=== PATIENT | female | born 1960 | race Caucasian/White ===

== ENCOUNTER 2017-01-18 17:16 | Emergency (ER) | payer OTHER ==
[~2017-01-18] VITALS: Ht 154.9 cm; Wt 68.0 kg
[2017-01-18] MEDS ORDERED: ALPRAZolam 0.25 MG (XANAX) TAB ONE (18:32)
[2017-01-18 18:35] LABS: BASOPHILS # (AUTO) 0.2 10^3/uL (0.0-0.1); BASOPHILS % (AUTO) 1 % (0-10); EOSINOPHILS # (AUTO) 0.1 10^3/uL (0.0-0.3); EOSINOPHILS % (AUTO) 1 % (0-10); LYMPHOCYTES # (AUTO) 2.4 X 10^3 (1.0-4.0); LYMPHOCYTES % (AUTO) 22 % (12-44); MEAN CORPUSCULAR HEMOGLOBIN 28 PG (25-34); MEAN CORPUSCULAR HGB CONC 34 G/DL (32-36); MEAN CORPUSCULAR VOLUME 83 FL (80-99); MEAN PLATELET VOLUME 11.2 FL (7.4-10.4); MONOCYTES # (AUTO) 0.7 X 10^3 (0.0-1.0); MONOCYTES % (AUTO) 6 % (0-12); NEUTROPHILS # (AUTO) 7.5 X 10^3 (1.8-7.8); NEUTROPHILS % (AUTO) 69 % (42-75); PLATELET COUNT 270 10^3/uL (130-400); RED BLOOD COUNT 5.37 10^6/uL (4.35-5.85); RED CELL DISTRIBUTION WIDTH 12.8 % (10.0-14.5); WHITE BLOOD COUNT 10.8 10^3/uL (4.3-11.0)
[2017-01-18 18:36] LABS: BILIRUBIN,URINE NEGATIVE (NEGATIVE); KETONES,URINE NEGATIVE (NEGATIVE); LEUKOCYTE ESTERASE ,URINE 1+ (NEGATIVE); NITRITE,URINE NEGATIVE (NEGATIVE); PH,URINE 7 (5-9); PROTEIN,URINE 1+ (NEGATIVE); UROBILINOGEN,URINE NORMAL (NORMAL)
[2017-01-18 18:42] LABS: WBC,URINE 0-2 /HPF
--- NOTE | 2017-01-18 18:49 | ED General ---
General Chief Complaint: General Problems/Pain Stated Complaint: BLOOD PRESSURE HIGH Nursing Triage Note: PT REPORTS SHE HAD SOME NAUSEA AND DIZZINESS AROUND NOON TODAY. SHE REPORTS GOING TO URGENT CARE IN [place] AND WAS HYPERTENSIVE. SHE STATES SHE WAS THEN SENT TO [place] ER, BUT SHE DIDN'T WANT TO WAIT THERE SO SHE CAME HERE. PT IS ASYMPTOMATIC AT THIS TIME. Nursing Sepsis Screen: No Definite Risk History of Present Illness Time Seen by Provider: 17:35 Initial Comments Patient reports increased anxiety recently. Her son has enlisted in the and will be leaving in the next few weeks. She reports being nauseated earlier today, it has improved. She had a headache, it improved after Tylenol and ibuprofen. Timing/Duration: 4-6 Hours Severity: Mild Modifying Factors: improves with Rest Associated Systoms: Denies Symptoms Allergies and Home Medications Allergies Coded Allergies: cephalexin (Verified Allergy, Unknown, 01/18/17) levofloxacin (Verified Allergy, Unknown, 01/18/17) prochlorperazine (Verified Allergy, Unknown, 01/18/17) promethazine (Verified Allergy, Unknown, 01/18/17) Home Medications Alprazolam 0.25 Mg Tablet, 0.25 MG PO Q8H PRN for ANXIETY, #9 Ref 0 Prescribed by: JUAREZ ROGERS on 01/18/171936 Constitutional: no symptoms reported, see HPI Gastrointestinal: see HPI, nausea Psychiatric/Neurological: See HPI, Anxiety All Other Systems Reviewed Negative Unless Noted: Yes Past Kvtbdlz-Sahrfe-Voqysr Hx Patient Social History Alcohol Use: Denies Use Recreational Drug Use: No Smoking Status: Never a Smoker 2nd Hand Smoke Exposure: No Recent Foreign Travel: No Contact w/Someone Who Travel: No Recent Infectious Disease Expo: No Recent Hopitalizations: No Seasonal Allergies Seasonal Allergies: No Surgeries Surgeries: Gallbladder, Hysterectomy, Tubal Ligation Reviewed Nursing Assessment Reviewed/Agree w Nursing PMH: Yes Physical Exam Vital Signs Vital Sign - Last 12Hours 01/18/17 17:35 Temp 97.9 Pulse 84 Resp 18 B/P (MAP) 143/87 Pulse Ox 98 O2 Delivery Room Air Capillary Refill : Less Than 3 Seconds General Appearance: No Apparent Distress, WD/WN HEENT: PERRL/EOMI, TMs Normal, Normal ENT Inspection, Pharynx Normal Neck: Full Range of Motion, Normal Inspection, Non Tender, Supple Respiratory: Chest Non Tender, Lungs Clear, Normal Breath Sounds Cardiovascular: Regular Rate, Rhythm, No Edema, No Murmur, Normal Peripheral Pulses Gastrointestinal: Normal Bowel Sounds, No Organomegaly, No Pulsatile Mass, Non Tender, Soft Neurologic/Psychiatric: Alert, Oriented x3, No Motor/Sensory Deficits, Normal Mood/Affect, Other (patient becomes tearful easily when discussing her son leaving for the .) Skin: Normal Color, Warm/Dry Lymphatic: No Adenopathy Progress/Results/Core Measures Results/Orders Lab Results Laboratory Tests Test 01/18/17 18:25 01/18/17 18:27 Range/Units Urine Color HOWARD H Urine Clarity CLEAR Urine pH 7 5-9 Urine Specific [place] 1.010 L 1.016-1.022 Urine Protein 1+ H NEGATIVE Urine Glucose (UA) NEGATIVE NEGATIVE Urine Ketones NEGATIVE NEGATIVE Urine Nitrite NEGATIVE NEGATIVE Urine Bilirubin NEGATIVE NEGATIVE Urine Urobilinogen NORMAL NORMAL MG/DL Urine Leukocyte Esterase 1+ H NEGATIVE Urine RBC (Auto) 2+ H NEGATIVE Urine RBC 2-5 H /HPF Urine WBC 0-2 /HPF Urine Squamous Epithelial Cells 5-10 /HPF Urine Crystals NONE /LPF Urine Bacteria TRACE /HPF Urine Casts NONE /LPF Urine Mucus NEGATIVE /LPF Urine Culture Indicated NO White Blood Count 10.8 4.3-11.0 10^3/uL Red Blood Count 5.37 4.35-5.85 10^6/uL Hemoglobin 15.1 11.5-16.0 G/DL Hematocrit 45 35-52 % Mean Corpuscular Volume 83 80-99 FL Mean Corpuscular Hemoglobin 28 25-34 PG Mean Corpuscular Hemoglobin Concent 34 32-36 G/DL Red Cell Distribution Width 12.8 10.0-14.5 % Platelet Count 270 130-400 10^3/uL Mean Platelet Volume 11.2 H 7.4-10.4 FL Neutrophils (%) (Auto) 69 42-75 % Lymphocytes (%) (Auto) 22 12-44 % Monocytes (%) (Auto) 6 0-12 % Eosinophils (%) (Auto) 1 0-10 % Basophils (%) (Auto) 1 0-10 % Neutrophils # (Auto) 7.5 1.8-7.8 X 10^3 Lymphocytes # (Auto) 2.4 1.0-4.0 X 10^3 Monocytes # (Auto) 0.7 0.0-1.0 X 10^3 Eosinophils # (Auto) 0.1 0.0-0.3 10^3/uL Basophils # (Auto) 0.2 H 0.0-0.1 10^3/uL Sodium Level 145 135-145 MMOL/L Potassium Level 3.3 L 3.6-5.0 MMOL/L Chloride Level 109 H 98-107 MMOL/L Carbon Dioxide Level 23 21-32 MMOL/L Anion Gap 13 5-14 MMOL/L Blood Urea Nitrogen 15 7-18 MG/DL Creatinine 0.76 0.60-1.30 MG/DL Estimat Glomerular Filtration Rate > 60 BUN/Creatinine Ratio 20 Glucose Level 126 H 70-105 MG/DL Calcium Level 9.6 8.5-10.1 MG/DL Total Bilirubin 0.4 0.1-1.0 MG/DL Aspartate Amino Transf (AST/SGOT) 17 5-34 U/L Alanine Aminotransferase (ALT/SGPT) 25 0-55 U/L Alkaline Phosphatase 90 40-136 U/L Total Protein 8.1 6.4-8.2 GM/DL Albumin 4.6 H 3.2-4.5 GM/DL Thyroid Stimulating Hormone (TSH) 1.52 0.35-4.94 UIU/ML My Orders Orders - JUAREZ ROGERS Cbc With Automated Diff (01/18/17 17:48) Comprehensive Metabolic Panel (01/18/17 17:48) Thyroid Stimulating Hormone (01/18/17 17:48) Ua Culture If Indicated (01/18/17 17:48) Alprazolam Tablet (Xanax Tablet) (01/18/17 18:32) Rx-Ondansetron Po (Rx-Zofran Po) (01/18/17 19:31) Vital Signs/I&O Vital Sign - Last 12Hours 01/18/17 17:35 Temp 97.9 Pulse 84 Resp 18 B/P (MAP) 143/87 Pulse Ox 98 O2 Delivery Room Air Blood Pressure Mean: 105 Progress Note : Time: 17:35 Progress Note Initial evaluation completed, recommended obtaining a CBC, TSH, UA and CMP. Patient declined needing any medication for anxiety or nausea at the present time. 1830 discussed results of labs with patient, no specific abnormalities noted. We talked at length about her son enlisting in the and sleeping for basic training in mid February. She is experiencing grief and anxiety related to this. Her is not concerned with him enlisting and not understanding about her concerns. She was prescribed xanax one other time in the past for anxiety, maybe 3-4 years ago. She didn't take it for long and flushed majority of Rx. She didn't like the way it made her feel. Discussed using 1/2 tablet to see if that works better. She is willing to try this and see counseling. She will talk to Dr. Gómez about this. Departure Impression Impression: Primary Impression: Nausea Additional Impression: Anxiety Disposition: HOME, SELF-CARE Condition: Improved Departure-Patient Inst. Decision time for Depature: 19:00 Referrals: LUISITO CORTES DO (PCP) Primary Care Physician Patient Instructions: Anxiety, Adult (DC), Nausea and Vomiting, Adult (DC) Add. Discharge Instructions: Increase water intake. Consider counseling for anxiety. Use Xanax 1/2-1 tablet as needed for anxiety. Tylenol PM at night. Return to emergency department for chest pain, hypertension, nausea and vomiting , or new complaints. All discharge instructions reviewed with patient and/or family. Voiced understanding. Scripts Alprazolam (Xanax) 0.25 Mg Tablet 0.25 MG PO Q8H Y for ANXIETY, #9 TAB 0 Refills Prov: JUAREZ ROGERS 01/18/17 Copy Copies To 1: INNA GÓMEZ MD, AMY ARNP Jan 18, 2017 18:49
[2017-01-18 18:58] LABS: ALANINE AMINOTRANSFERASE 25 U/L (0-55); ALBUMIN 4.6 GM/DL (3.2-4.5); ANION GAP 13 MMOL/L (5-14); ASPARTATE AMINO TRANSFERASE 17 U/L (5-34); BILIRUBIN,TOTAL 0.4 MG/DL (0.1-1.0); BLOOD UREA NITROGEN 15 MG/DL (7-18); BUN/CREATININE RATIO 20; CALCIUM 9.6 MG/DL (8.5-10.1); CARBON DIOXIDE 23 MMOL/L (21-32); CHLORIDE 109 MMOL/L (98-107); CREATININE SERUM 0.76 MG/DL (0.60-1.30); GFR ESTIMATED > 60; GLUCOSE 126 MG/DL (70-105); POTASSIUM 3.3 MMOL/L (3.6-5.0); SODIUM 145 MMOL/L (135-145); TOTAL PROTEIN 8.1 GM/DL (6.4-8.2)
[2017-01-18 19:17] LABS: THYROID STIMULATING HORMONE 1.52 UIU/ML (0.35-4.94)
[2017-01-18] MEDS ORDERED: RX-ONDANSETRON 4 MG ODT (ZOFRAN) PPK #4 PO STA (19:31)
[2017-01-18] MEDS ORDERED: ALPR0.25 PO (19:37)
[2017-01-18 19:52] VITALS: BP 164/94
== END 2017-01-18 19:49 | disposition home or self-care (01) ==
LOC: EDUNIT# 17:16 → ER 17:19
DX: F41.9 Anxiety disorder, unspecified (principal); R11.0 Nausea; Z90.49 Acquired absence of other specified parts of digestive tract; Z90.710 Acquired absence of both cervix and uterus; Z98.51 Tubal ligation status
CPT/HCPCS: 36415; 80053; 81000; 84443; 85025; 99283

== ENCOUNTER 2019-06-05 20:04 | Emergency (ER) | payer BC, OTHER ==
[~2019-06-05] VITALS: Ht 156.4 cm; Wt 79.5 kg
[~2019-06-05 20:04] MED LIST: ALPR0.25 PO
--- NOTE | 2019-06-05 20:11 | NUR ---
PT. REPORTED SHE IS UP TO DATE ON TETNAUS.
--- NOTE | 2019-06-05 20:22 | ED Integumentary General ---
General Chief Complaint: Laceration Stated Complaint: HAND LAC Source: patient Exam Limitations: no limitations History of Present Illness Date Seen by Provider: Jun 05, 2019 Time Seen by Provider: 20:15 Initial Comments 58-year-old female presents with a laceration to the webspace between the third and fourth digit of the right hand. Patient reports she was cleaning turkey slicing utensil when she dropped it and hit her hand. She has a small 0.5 cm irregular laceration at the web space. No bleeding no other injuries. Patient believes her last tetanus was approximately 2 years ago Allergies and Home Medications Allergies Coded Allergies: cephalexin (Verified Allergy, Unknown, 01/18/17) levofloxacin (Verified Allergy, Unknown, 01/18/17) prochlorperazine (Verified Allergy, Unknown, 01/18/17) promethazine (Verified Allergy, Unknown, 01/18/17) Home Medications Alprazolam 0.25 Mg Tablet, 0.25 MG PO Q8H PRN for ANXIETY Prescribed by: JUAREZ ROGERS on 01/18/171936 Patient Home Medication List Home Medication List Reviewed: Yes Review of Systems Review of Systems Constitutional: no symptoms reported Respiratory: no symptoms reported Cardiovascular: no symptoms reported Skin: see HPI Past Hkynfzd-Ezwvkl-Souxnm Hx Past Med/Social Hx: Reviewed Nursing Past Med/Soc Hx Patient Social History 2nd Hand Smoke Exposure: No Recent Foreign Travel: No Recent Hopitalizations: No Seasonal Allergies Seasonal Allergies: No Past Medical History Surgeries: Yes Gallbladder, Hysterectomy, Tubal Ligation Physical Exam Vital Signs Vital Signs - First Documented 06/05/19 20:11 Temp 36.1 Pulse 78 Resp 22 B/P (MAP) 136/80 (98) O2 Delivery Room Air Capillary Refill : General Appearance: WD/WN, no apparent distress Cardiovascular: normal peripheral pulses, regular rate, rhythm Respiratory: lungs clear, normal breath sounds Gastrointestinal: soft Extremities: normal range of motion, non-tender Neurologic/Psychiatric: normal mood/affect, oriented x 3 Skin: other (small 0.5 cm irregular laceration in the webspace between the third and fourth digit of the right) Procedures/Interventions Wound Location: Upper Extremities Other Wound Location webspace between 3 - 4 digit right hand Wound's Depth, Shape: irregular Wound Explored: clean Other Closure Supply: Wound Adhesive Progress/Results/Core Measures Results/Orders Vital Signs/I&O 06/05/19 20:11 Temp 36.1 Pulse 78 Resp 22 B/P (MAP) 136/80 (98) O2 Delivery Room Air Departure Impression Primary Impression: Laceration of right hand Qualified Codes: S61.411A - Laceration without foreign body of right hand, initial encounter Disposition: HOME, SELF-CARE Condition: Stable Departure-Patient Inst. Referrals: LUISITO CORTES DO (PCP/Family) Primary Care Physician Patient Instructions: Laceration Repair With Glue (DC), Wound Care OMI GRANADOS DO Jun 05, 2019 20:22 POS
[2019-06-05 20:46] VITALS: BP 141/78
== END 2019-06-05 20:46 | disposition home or self-care (01) ==
LOC: EDUNIT# 20:04 → ER FS 20:05
DX: S61.411A Laceration without foreign body of right hand, initial encounter (principal); Z88.1 Allergy status to other antibiotic agents; Z88.8 Allergy status to other drugs, medicaments and biological substances; Z90.710 Acquired absence of both cervix and uterus; Z98.51 Tubal ligation status; W26.8XXA Contact with other sharp object(s), not elsewhere classified, initial encounter

== ENCOUNTER 2019-12-19 11:51 | Emergency (ER) | payer BC ==
[~2019-12-19] VITALS: Ht 152.4 cm; Wt 88.3 kg
[2019-12-19] MEDS ORDERED: ORPHENADRINE 60 MG/2 ML (NORFLEX) AMP (ED ONLY) IM STA (12:01)
[2019-12-19] MEDS ORDERED: KETOROLAC 60 MG/2 ML VIAL IM STA (12:01)
--- NOTE | 2019-12-19 12:15 | ED Back Pain ---
General Chief Complaint: Back Problems Stated Complaint: BACK PAIN Source of Information: Patient Exam Limitations: Physical Impairments (back and rib pain ) History of Present Illness Date Seen by Provider: Dec 19, 2019 Time Seen by Provider: 11:54 Initial Comments 59 yo Female presenting with pain to right ribs and back since falling FridayDecember 17. She denies hitting her head or losing consciousness. She states that she had gone to strip picker her cat from [employer]. When she went to get her cat she accidentally stepped on one of the [employer] cats and this caused her to lose her balance and fell backwards. She states that she fell on a lawn chair admission. She has been trying liquid ibuprofen for the pain. She continued to have pain felt like it was worse today so she came to the emergency department. She denies any numbness or tingling into her legs. She has had no loss of bowel or bladder control. Allergies and Home Medications Allergies Coded Allergies: cephalexin (Verified Allergy, Unknown, Swelling, 12/19/19) famotidine (Verified Allergy, Unknown, Swelling, 12/19/19) levofloxacin (Verified Allergy, Unknown, Hives, 12/19/19) nalbuphine (Verified Allergy, Unknown, Shortness of Breath/Wheezing, 12/19/19) prochlorperazine (Verified Allergy, Unknown, Seizure, 12/19/19) promethazine (Verified Allergy, Unknown, Seizure, 12/19/19) trimethobenzamide (Verified Allergy, Unknown, Seizure, 12/19/19) Home Medications Alprazolam 0.25 Mg Tablet, 0.25 MG PO Q8H PRN for ANXIETY Prescribed by: JUAREZ ROGERS on 01/18/171936 Baclofen 5 Mg Tablet, 5 MG PO TID PRN for MUSCLE SPASMS Prescribed by: CANDE WEBB on 12/19/19 1343 Ibuprofen 100 Mg/5 Ml Oral.susp, 400 MG PO Q6H PRN for pain/inflammation Prescribed by: CANDE WEBB on 12/19/19 1343 Oxycodone HCl/Acetaminophen 1 Each Tablet, 1 EACH PO Q6H PRN for PAIN-SEVERE (8- 10) Prescribed by: CANDE WEBB on 12/19/19 1401 Patient Home Medication List Home Medication List Reviewed: Yes Review of Systems Constitutional: No chills, No fever EENTM: no symptoms reported Respiratory: other (hurts her right posterior ribs to take a deep breath and move) Cardiovascular: chest pain (right posterior chest/rib pain) Gastrointestinal: no symptoms reported Genitourinary: No hematuria Musculoskeletal: back pain Skin: no symptoms reported Psychiatric/Neurological: Denies Headache, Denies Numbness, Denies Paresthesia Past Tjkcblw-Wpviyf-Syvlhw Hx Past Med/Social Hx: Reviewed Nursing Past Med/Soc Hx Patient Social History Alcohol Use: Denies Use Recreational Drug Use: No Smoking Status: Never a Smoker 2nd Hand Smoke Exposure: No Recent Hopitalizations: No Physical Abuse: No Sexual Abuse: No Mistreated: No Fear: No Seasonal Allergies Seasonal Allergies: No Past Medical History Surgeries: Yes Gallbladder, Hysterectomy, Oophorectomy, Tubal Ligation Respiratory: No Cardiac: No Neurological: No Genitourinary: No Gastrointestinal: No Musculoskeletal: No Endocrine: No HEENT: No Cancer: No Psychosocial: No Integumentary: No Physical Exam Vital Signs Vital Signs - First Documented 12/19/19 11:55 Temp 36.7 Pulse 96 Resp 18 B/P (MAP) 171/86 (114) Pulse Ox 99 O2 Delivery Room Air Capillary Refill : Height, Weight, BMI Height: 5'1.00" Weight: 150lbs. oz. 68.815900qa; 32.00 BMI Method:Stated General Appearance: WD/WN, Moderate Distress HEENT: PERRL/EOMI, Pharynx Normal Neck: Non Tender, Supple Cardiovascular: Regular Rate, Rhythm, Normal Peripheral Pulses Respiratory: Lungs Clear, Normal Breath Sounds, No Accessory Muscle Use, No Respiratory Distress, Other (tender to palpation on right posterior lower r ib/chest wall) Extremity: Normal Capillary Refill, No Pedal Edema Neurologic/Psychiatric: Alert, Oriented x3, No Motor/Sensory Deficits, product safety tester II- XII Norm as Tested, Abnormal Gait (antalgic gait) Skin: Normal Color, Warm/Dry Progress/Results/Core Measures Results/Orders Lab Results Laboratory Tests Test 12/19/19 12:58 Range/Units Urine Color DARK YELLOW Urine Clarity CLEAR Urine pH 6.0 5-9 Urine Specific [place] 1.025 H 1.016-1.022 Urine Protein NEGATIVE NEGATIVE Urine Glucose (UA) NEGATIVE NEGATIVE Urine Ketones NEGATIVE NEGATIVE Urine Nitrite NEGATIVE NEGATIVE Urine Bilirubin NEGATIVE NEGATIVE Urine Urobilinogen 0.2 < = 1.0 MG/DL Urine Leukocyte Esterase TRACE H NEGATIVE Urine RBC (Auto) NEGATIVE NEGATIVE Urine RBC 0-2 /HPF Urine WBC 2-5 /HPF Urine Squamous Epithelial Cells 2-5 /HPF Urine Crystals NONE /LPF Urine Bacteria NEGATIVE /HPF Urine Casts NONE /LPF Urine Mucus SMALL H /LPF Urine Culture Indicated NO My Orders Orders - CANDE WEBB MD Ua Culture If Indicated (12/19/19 11:54) Ketorolac Injection (Toradol Injection) (12/19/19 12:01) Orphenadrine Injection (Norflex Injectio (12/19/19 12:01) Ct Chest/Abdomen/Pelvis Wo (12/19/19 12:01) Vital Signs/I&O 12/19/19 11:55 Temp 36.7 Pulse 96 Resp 18 B/P (MAP) 171/86 (114) Pulse Ox 99 O2 Delivery Room Air Progress Progress Note #1: Progress Note try toradol and norflex for pain and spasms. check CT chest/abdomen/pelvis without contrast to evaluate for possible rib fracture or compression fracture o f lumbar spine. Progress Note #2: Time: 12:54 Progress Note No acute fracture or internal injury seen on CT scans. Will update pt and plan to continue muscle relaxer and pain medicine. Progress Note #3: Progress Note when patient was leaving she told the nurse she can not tolerate hydrocodone so will change to oxycodone for severe pain. call pharmacy to let them know as well as change in system. Diagnostic Imaging Diagonstic Imaging: CT Plain Films/CT/US/NM/MRI: chest, abdomen, pelvis Comments NAME: DANIELITO MORGAN [facility] REC#: [id number] PT STATUS: REG ER : 1960 PHYSICIAN: CANDE WEBB MD ADMIT DATE: 12/19/19/ER FS Draft Date of Exam:12/19/19 CT CHEST/ABDOMEN/PELVIS WO PROCEDURE: CT chest, abdomen, and pelvis without contrast. TECHNIQUE: Multiple contiguous axial images were obtained through the chest, abdomen, and pelvis without the use of intravenous contrast. Auto Exposure Controls were utilized during the CT exam to meet ALARA standards for radiation dose reduction. INDICATION: Fall backwards yesterday complaining of low back pain in the left-sided posterior rib pain. COMPARISON: No prior studies are available for comparison. FINDINGS: CT chest: No definite mediastinal hematoma is identified. No pericardial or pleural fluid is detected. No pulmonary contusion or pneumothorax is detected. There is a tiny subpleural nodule in the right lower lobe adjacent to the major fissure measuring 4 mm. Bony structures are unremarkable. Specifically, no definite rib fracture is identified. IMPRESSION: Unremarkable noncontrast CT of the chest. CT abdomen and pelvis: Evaluation is limited without intravenous contrast. No definite hepatic or splenic laceration is seen. There is a tiny low density in left lobe of the liver, too small to characterize measuring 9 mm. The pancreas, adrenal glands and kidneys are unremarkable. Aorta is non-aneurysmal. Bowel loops are normal in caliber. There is diverticulosis of the descending and sigmoid colon but no evidence of acute diverticulitis. There is no free fluid or fluid collection. Bladder is unremarkable. The lumbar spine and bony pelvis are nonacute. IMPRESSION: Limited due to lack of intravenous contrast but no definite evidence of abdominal or pelvic visceral injury is identified. No acute bony abnormality is detected. Dictated on workstation # [id number] Dict: 12/19/19 1239 Trans: 12/19/19 1248 [facility] [id number] Interpreted by: MILY ENRIQUEZ MD Electronically signed by: Departure Impression Primary Impression: Contusion of chest wall with intact skin Additional Impressions: Lumbar sprain Qualified Codes: S33.5XXA - Sprain of ligaments of lumbar spine, initial encounter Strain of thoracic region Qualified Codes: S29.019A - Strain of muscle and tendon of unspecified wall of thorax, initial encounter Disposition: 01 HOME, SELF-CARE Condition: Stable Departure-Patient Inst. Decision time for Depature: 13:38 Referrals: LUISITO CORTES DO (PCP/Family) Primary Care Physician Patient Instructions: Lumbar Muscle Strain (DC), Bruised Rib (DC), Contusion (DC) Add. Discharge Instructions: Try the pain medicine to help you rest. Muscle relaxer to help with spasms in your back. Alternate ice and heat to your back and chest wall to help with pain Follow up with Dr. Cortes or you may need to see a chiropractor for continued symptoms All discharge instructions reviewed with patient and/or family. Voiced understanding. Scripts Oxycodone HCl/Acetaminophen (Oxycodone-Acetaminophen 5-325) 1 Each Tablet 1 EACH PO Q6H PRN for PAIN-SEVERE (8-10) MDD 6 for 3 Days, #12 TAB 0 Refills Prov: CANDE WEBB MD 12/19/19 Ibuprofen (Ibuprofen) 100 Mg/5 Ml Oral.susp 400 MG PO Q6H PRN for pain/inflammation for 5 Days, #240 ML 0 Refills Prov: CANDE WEBB MD 12/19/19 Baclofen (Baclofen) 5 Mg Tablet 5 MG PO TID PRN for MUSCLE SPASMS for 5 Days, #15 TAB 0 Refills Prov: CANDE WEBB MD 12/19/19 CANDE WEBB MD Dec 19, 2019 12:15
--- NOTE | 2019-12-19 12:49 | Diagnostic Imaging Report ---
PROCEDURE: CT chest, abdomen, and pelvis without contrast. TECHNIQUE: Multiple contiguous axial images were obtained through the chest, abdomen, and pelvis without the use of intravenous contrast. Auto Exposure Controls were utilized during the CT exam to meet ALARA standards for radiation dose reduction. INDICATION: Fall backwards yesterday complaining of low back pain in the left-sided posterior rib pain. COMPARISON: No prior studies are available for comparison. FINDINGS: CT chest: No definite mediastinal hematoma is identified. No pericardial or pleural fluid is detected. No pulmonary contusion or pneumothorax is detected. There is a tiny subpleural nodule in the right lower lobe adjacent to the major fissure measuring 4 mm. Bony structures are unremarkable. Specifically, no definite rib fracture is identified. IMPRESSION: Unremarkable noncontrast CT of the chest. CT abdomen and pelvis: Evaluation is limited without intravenous contrast. No definite hepatic or splenic laceration is seen. There is a tiny low density in left lobe of the liver, too small to characterize measuring 9 mm. The pancreas, adrenal glands and kidneys are unremarkable. Aorta is non-aneurysmal. Bowel loops are normal in caliber. There is diverticulosis of the descending and sigmoid colon but no evidence of acute diverticulitis. There is no free fluid or fluid collection. Bladder is unremarkable. The lumbar spine and bony pelvis are nonacute. IMPRESSION: Limited due to lack of intravenous contrast but no definite evidence of abdominal or pelvic visceral injury is identified. No acute bony abnormality is detected. Dictated by: Dictated on workstation # [id number]
[2019-12-19 13:25] LABS: BACTERIA,URINE NEGATIVE /HPF; BILIRUBIN,URINE NEGATIVE (NEGATIVE); CLARITY,URINE CLEAR; COLOR,URINE DARK YELLOW; GLUCOSE, URINE (UA) NEGATIVE (NEGATIVE); KETONES,URINE NEGATIVE (NEGATIVE); LEUKOCYTE ESTERASE ,URINE TRACE (NEGATIVE); NITRITE,URINE NEGATIVE (NEGATIVE); PROTEIN,URINE NEGATIVE (NEGATIVE); RBC,URINE 0-2 /HPF
[2019-12-19] MEDS ORDERED: BACL5TAB PO (13:43)
[2019-12-19] MEDS ORDERED: HYDR-83 PO (13:43)
[2019-12-19] MEDS ORDERED: IBP100U5 PO (13:43)
[2019-12-19 13:56] VITALS: BP 171/86
[2019-12-19] MEDS ORDERED: OXYC-471 PO (14:01)
== END 2019-12-19 13:48 | disposition home or self-care (01) ==
LOC: EDUNIT# 11:51 → ER FS 11:52
DX: S29.019A Strain of muscle and tendon of unspecified wall of thorax, initial encounter (principal); S33.5XXA Sprain of ligaments of lumbar spine, initial encounter; S20.211A Contusion of right front wall of thorax, initial encounter; Z88.8 Allergy status to other drugs, medicaments and biological substances; Z88.1 Allergy status to other antibiotic agents; W01.198A Fall on same level from slipping, tripping and stumbling with subsequent striking against other object, initial encounter
CPT/HCPCS: 71250; 74176; 81000

== ENCOUNTER 2020-11-09 03:54 | Emergency (ER) | payer BC ==
[~2020-11-09] VITALS: Ht 152.4 cm; Wt 88.5 kg
[~2020-11-09 03:54] MED LIST changes: +ACHD5005 PO; +BACL5TAB PO; +IBP100U5 PO; +OXYC1TAB11 PO
--- NOTE | 2020-11-09 04:17 | ED Abdominal Pain ---
General Chief Complaint: Abdominal/GI Problems Stated Complaint: VOMITING Source of Information: Patient History of Present Illness Date Seen by Provider: November 09, 2020 Time Seen by Provider: 04:00 Initial Comments 60-year-old female presents with nausea and vomiting sudden onset last night 10 PM and is continued since then and on arrival. Does have some upper abdominal discomfort and burning. Denies any known sick contacts or suspected food poisoning. States she just suddenly felt sick when she was at [facility] last evening. Denies any chest pain, swelling of extremities, cough or shortness of air Allergies and Home Medications Allergies Coded Allergies: cephalexin (Verified Allergy, Unknown, Swelling, 12/19/19) famotidine (Verified Allergy, Unknown, Swelling, 12/19/19) levofloxacin (Verified Allergy, Unknown, Hives, 12/19/19) nalbuphine (Verified Allergy, Unknown, Shortness of Breath/Wheezing, 12/19/19) prochlorperazine (Verified Allergy, Unknown, Seizure, 12/19/19) promethazine (Verified Allergy, Unknown, Seizure, 12/19/19) trimethobenzamide (Verified Allergy, Unknown, Seizure, 12/19/19) Home Medications Alprazolam 0.25 Mg Tablet, 0.25 MG PO Q8H PRN for ANXIETY Prescribed by: JUAREZ ROGERS on 01/18/17 193 Baclofen 5 Mg Tablet, 5 MG PO TID PRN for MUSCLE SPASMS Prescribed by: CANDE WEBB on 12/19/19 1343 Ibuprofen 100 Mg/5 Ml Oral.susp, 400 MG PO Q6H PRN for pain/inflammation Prescribed by: CANDE WEBB on 12/19/19 1343 Oxycodone HCl/Acetaminophen 1 Each Tablet, 1 EACH PO Q6H PRN for PAIN-SEVERE (8- 10) Prescribed by: CANDE WEBB on 12/19/19 1401 Patient Home Medication List Home Medication List Reviewed: Yes Review of Systems Review of Systems Constitutional: diaphoresis, malaise Respiratory: Denies Cough, Denies Shortness of Air Cardiovascular: Denies Chest Pain, Denies Edema Gastrointestinal: Abdominal Pain; Denies Constipated, Denies Diarrhea; Nausea, Vomiting Genitourinary: Denies Burning, Denies Frequency, Denies Flank Pain, Denies Hematuria, Denies Urgency Musculoskeletal: No back pain, No joint pain, No muscle pain Psychiatric/Neurological: Denies Headache, Denies Numbness, Denies Paresthesia Past Ueadqav-Ojkdmq-Eimdma Hx Past Med/Social Hx: Reviewed Nursing Past Med/Soc Hx Patient Social History Alcohol Use: Denies Use Smoking Status: Never a Smoker 2nd Hand Smoke Exposure: No Recent Hopitalizations: No Seasonal Allergies Seasonal Allergies: No Past Medical History Surgeries: Yes Gallbladder, Hysterectomy, Oophorectomy, Tubal Ligation Respiratory: No Cardiac: No Neurological: No Genitourinary: No Gastrointestinal: No Musculoskeletal: No Endocrine: No HEENT: No Cancer: No Psychosocial: No Integumentary: No Physical Exam Vital Signs Vital Signs - First Documented 11/09/20 04:09 Temp 36.5 Pulse 128 Resp 18 B/P (MAP) 188/119 (142) Pulse Ox 98 O2 Delivery Room Air Capillary Refill : Height/Weight/BMI Height: 5'1.00" Weight: 150lbs. oz. [id number]; 38.00 BMI Method:Stated General Appearance: WD/WN, no apparent distress HEENT: PERRL/EOMI, normal ENT inspection Neck: non-tender, supple Respiratory: chest non-tender, lungs clear, normal breath sounds Cardiovascular: regular rate, rhythm, no edema, no gallop Gastrointestinal: soft, no organomegaly, no pulsatile mass; No guarding, No rebound; tenderness (mild epigastric) Extremities: non-tender, no pedal edema Back: normal inspection, no CVA tenderness Neurologic/Psychiatric: no motor/sensory deficits, alert Skin: normal color, warm/dry Progress/Results/Core Measures Results/Orders Lab Results Laboratory Tests Test 11/09/20 04:20 Range/Units White Blood Count 13.4 H 4.3-11.0 10^3/uL Red Blood Count 5.16 4.35-5.85 10^6/uL Hemoglobin 14.7 11.5-16.0 G/DL Hematocrit 44 35-52 % Mean Corpuscular Volume 85 80-99 FL Mean Corpuscular Hemoglobin 28 25-34 PG Mean Corpuscular Hemoglobin Concent 33 32-36 G/DL Red Cell Distribution Width 13.0 10.0-14.5 % Platelet Count 216 130-400 10^3/uL Mean Platelet Volume 10.9 H 7.4-10.4 FL Immature Granulocyte % (Auto) 0 % Neutrophils (%) (Auto) 84 H 42-75 % Lymphocytes (%) (Auto) 7 L 12-44 % Monocytes (%) (Auto) 7 0-12 % Eosinophils (%) (Auto) 1 0-10 % Basophils (%) (Auto) 0 0-10 % Neutrophils # (Auto) 11.3 H 1.8-7.8 X 10^3 Lymphocytes # (Auto) 0.9 L 1.0-4.0 X 10^3 Monocytes # (Auto) 0.9 0.0-1.0 X 10^3 Eosinophils # (Auto) 0.2 0.0-0.3 10^3/uL Basophils # (Auto) 0.1 0.0-0.1 10^3/uL Immature Granulocyte # (Auto) 0.0 0.0-0.1 10^3/uL Neutrophils % (Manual) 84 % Lymphocytes % (Manual) 8 % Monocytes % (Manual) 0 % Eosinophils % (Manual) 2 % Basophils % (Manual) 0 % Band Neutrophils 6 % Sodium Level 138 135-145 MMOL/L Potassium Level 3.6 3.6-5.0 MMOL/L Chloride Level 103 98-107 MMOL/L Carbon Dioxide Level 23 21-32 MMOL/L Anion Gap 12 5-14 MMOL/L Blood Urea Nitrogen 22 H 7-18 MG/DL Creatinine 0.64 0.60-1.30 MG/DL Estimat Glomerular Filtration Rate > 60 BUN/Creatinine Ratio 34 Glucose Level 183 H 70-105 MG/DL Calcium Level 8.9 8.5-10.1 MG/DL Corrected Calcium 8.6 8.5-10.1 MG/DL Total Bilirubin 0.5 0.1-1.0 MG/DL Aspartate Amino Transf (AST/SGOT) 46 H 5-34 U/L Alanine Aminotransferase (ALT/SGPT) 63 H 0-55 U/L Alkaline Phosphatase 84 40-136 U/L Total Protein 7.3 6.4-8.2 GM/DL Albumin 4.4 3.2-4.5 GM/DL My Orders Orders - ROVENSTCHIKIS MADISON DO Ed Iv/Invasive Line Start (11/09/20 04:17) Cbc With Automated Diff (11/09/20 04:17) Comprehensive Metabolic Panel (11/09/20 04:17) Ns Iv 1000 Ml (Sodium Chloride 0.9%) (11/09/20 04:30) Ondansetron Injection (Zofran Injectio (11/09/20 04:30) Manual Differential (11/09/20 04:20) Medications Given in ED Current Medications Medications Dose Ordered Sig/Herminio Route Start Time Stop Time Status Last Admin Dose Admin Ondansetron HCl 4 mg ONCE ONCE IVP 11/09/20 04:30 11/09/20 04:31 DC 11/09/20 04:24 4 MG Vital Signs/I&O 11/09/20 04:09 Temp 36.5 Pulse 128 Resp 18 B/P (MAP) 188/119 (142) Pulse Ox 98 O2 Delivery Room Air Progress Progress Note : Progress Note 0500-feeling better, nausea improved, no abdominal pain and no further vomiting. Discussed labs within normal limits advised clear liquids until feeling better and then advancing diet as tolerated. Prescription for Zofran and follow-up if not improving with her PCP. Departure Impression Primary Impression: Nausea and vomiting Qualified Codes: R11.2 - Nausea with vomiting, unspecified Disposition: 01 HOME, SELF-CARE Condition: Improved Departure-Patient Inst. Decision time for Depature: 05:08 Referrals: LUISITO CORTES DO (PCP/Family) Primary Care Physician Patient Instructions: Nausea and Vomiting, Adult (DC) Scripts Ondansetron (Ondansetron Odt) 4 Mg Tab.rapdis 4 MG PO TID for Nausea, #10 TAB Prov: CHIKIS NUÑEZ DO 11/09/20 CHIKIS NUÑEZ DO November 09, 2020 04:17
[2020-11-09] MEDS ORDERED: ONDANSETRON 4 MG/2 ML (SDV) Z0FRAN IVP ONE ×2 (04:30→05:15)
[2020-11-09] MEDS ORDERED: NS IV 1000 ML 1,000 ML IV SCH (04:30)
[2020-11-09 04:48] LABS: HEMATOCRIT 44 % (35-52); HEMOGLOBIN 14.7 G/DL (11.5-16.0); MEAN CORPUSCULAR HEMOGLOBIN 28 PG (25-34); MEAN CORPUSCULAR HGB CONC 33 G/DL (32-36); MEAN CORPUSCULAR VOLUME 85 FL (80-99); PLATELET COUNT 216 10^3/uL (130-400); WHITE BLOOD COUNT 13.4 10^3/uL (4.3-11.0)
[2020-11-09 04:49] LABS: BASOPHILS % (AUTO) 0 % (0-10); EOSINOPHILS # (AUTO) 0.2 10^3/uL (0.0-0.3); EOSINOPHILS % (AUTO) 1 % (0-10); LYMPHOCYTES # (AUTO) 0.9 X 10^3 (1.0-4.0); LYMPHOCYTES % (AUTO) 7 % (12-44); MEAN PLATELET VOLUME 10.9 FL (7.4-10.4); MONOCYTES # (AUTO) 0.9 X 10^3 (0.0-1.0); MONOCYTES % (AUTO) 7 % (0-12); NEUTROPHILS # (AUTO) 11.3 X 10^3 (1.8-7.8); NEUTROPHILS % (AUTO) 84 % (42-75)
[2020-11-09 04:50] LABS: BASOPHILS # (AUTO) 0.1 10^3/uL (0.0-0.1)
[2020-11-09 05:02] LABS: BAND NEUTROPHILS 6 %; BASOPHILS % (MANUAL) 0 %; EOSINOPHILS % (MANUAL) 2 %; LYMPHOCYTES % (MANUAL) 8 %; MONOCYTES % (MANUAL) 0 %; NEUTROPHILS % (MANUAL) 84 %
[2020-11-09 05:03] LABS: CHLORIDE 103 MMOL/L (98-107); POTASSIUM 3.6 MMOL/L (3.6-5.0); SODIUM 138 MMOL/L (135-145)
[2020-11-09 05:04] LABS: ALANINE AMINOTRANSFERASE 63 U/L (0-55); ALBUMIN 4.4 GM/DL (3.2-4.5); ALKALINE PHOSPHATASE 84 U/L (40-136); BILIRUBIN,TOTAL 0.5 MG/DL (0.1-1.0); BUN/CREATININE RATIO 34; CALCIUM 8.9 MG/DL (8.5-10.1); CARBON DIOXIDE 23 MMOL/L (21-32); CREATININE SERUM 0.64 MG/DL (0.60-1.30); GFR ESTIMATED > 60; GLUCOSE 183 MG/DL (70-105); TOTAL PROTEIN 7.3 GM/DL (6.4-8.2)
[2020-11-09] MEDS ORDERED: ONDA4TAB11 PO (05:09)
[2020-11-09 05:12] VITALS: BP 125/60
== END 2020-11-09 05:12 | disposition home or self-care (01) ==
LOC: EDUNIT# 03:54 → ER FS 03:56
DX: R11.2 Nausea with vomiting, unspecified (principal); Z88.1 Allergy status to other antibiotic agents; Z88.8 Allergy status to other drugs, medicaments and biological substances
CPT/HCPCS: 36415; 80053; 85007; 85027

== ENCOUNTER 2021-06-25 12:27 | Emergency (ER) | payer BC ==
[~2021-06-25] VITALS: Ht 172 cm; Wt 82.0 kg
[~2021-06-25 12:27] MED LIST changes: +ONDA4TAB11 PO
--- NOTE | 2021-06-25 13:13 | ED Cough/URI ---
General Chief Complaint: COVID19 Suspect/Confirmed Stated Complaint: COVID+; NAUSEA Source: patient Exam Limitations: no limitations History of Present Illness Date Seen by Provider: Jun 25, 2021 Time Seen by Provider: 12:30 Initial Comments 60yoF with no significant PMH that was diagnosed with COVID 15 days ago with symptoms starting 2 days before that. She is still feeling SOB, cough, light headed, nausea without vomiting, loss of appetite and body aches. She says things have progressively been getting worse. Took zofran a couple hours ago which did not help. She was treated with prednisone, ivermectin, azithromycin, and still sick a week later so now since has finished a course of doxycycline. Currently only taking zofran. Allergies and Home Medications Allergies Coded Allergies: cephalexin (Verified Allergy, Unknown, Swelling, 12/19/19) famotidine (Verified Allergy, Unknown, Swelling, 12/19/19) levofloxacin (Verified Allergy, Unknown, Hives, 12/19/19) nalbuphine (Verified Allergy, Unknown, Shortness of Breath/Wheezing, 12/19/19) prochlorperazine (Verified Allergy, Unknown, Seizure, 12/19/19) promethazine (Verified Allergy, Unknown, Seizure, 12/19/19) trimethobenzamide (Verified Allergy, Unknown, Seizure, 12/19/19) Patient Home Medication List Home Medication List Reviewed: Yes Alprazolam (Xanax) 0.25 Mg Tablet, 0.25 MG PO Q8H PRN for ANXIETY Prescribed by: JUAREZ ROGERS on 01/18/17 193 Baclofen (Baclofen) 5 Mg Tablet, 5 MG PO TID PRN for MUSCLE SPASMS Prescribed by: CANDE WEBB on 12/19/19 1343 Ibuprofen (Ibuprofen) 100 Mg/5 Ml Oral.susp, 400 MG PO Q6H PRN for pain/inflammation Prescribed by: CANDE WEBB on 12/19/19 1343 Ondansetron (Ondansetron Odt) 4 Mg Tab.rapdis, 4 MG PO TID Prescribed by: CHIKIS NUÑEZ on 11/09/20 3159 Ondansetron HCl (Zofran) 4 Mg Tab, 4 MG PO Q6H PRN for NAUSEA/VOMITING-1ST LINE Prescribed by: CHELSIE WHATLEY on 06/25/21 1358 Oxycodone HCl/Acetaminophen (Oxycodone-Acetaminophen 5-325) 1 Each Tablet, 1 EACH PO Q6H PRN for PAIN-SEVERE (8-10) Prescribed by: CANDE WEBB on 12/19/19 1401 Review of Systems Review of Systems Constitutional: chills; No fever EENTM: No blurred vision Respiratory: cough, short of breath Cardiovascular: No chest pain Gastrointestinal: abdominal pain; No diarrhea; nausea; No vomiting Genitourinary: no symptoms reported Musculoskeletal: no symptoms reported Skin: no symptoms reported Psychiatric/Neurological: No Symptoms Reported Hematologic/Lymphatic: No Symptoms Reported Immunological/Allergic: no symptoms reported All Other Systems Reviewed Negative Unless Noted: Yes Past Fuqrvcp-Amtago-Dudnls Hx Patient Social History Tobacco Use?: No Use of E-Cig and/or Vaping dev: No Substance use?: No Alcohol Use?: No Pt feels they are or have been: No Immunizations Up To Date First/Initial COVID19 Vaccinat: Not currently vaccinated Seasonal Allergies Seasonal Allergies: No Past Medical History Surgery/Hospitalization HX: anxiety Surgeries: Yes Gallbladder, Hysterectomy, Oophorectomy, Tubal Ligation Respiratory: No Cardiac: No Neurological: No Genitourinary: No Gastrointestinal: No Musculoskeletal: No Endocrine: No HEENT: No Cancer: No Psychosocial: No Integumentary: No Physical Exam Vital Signs - First Documented 06/25/21 13:39 Temp 36.6 Pulse 84 Resp 18 B/P (MAP) 154/89 (110) Pulse Ox 98 O2 Delivery Room Air Capillary Refill : Height: 5'1.00" Weight: 150lbs. oz. 68.256974zy; 38.00 BMI Method:Stated General Appearance: WD/WN, no apparent distress Eyes: Bilateral Eye Normal Inspection HEENT: PERRL/EOMI, normal ENT inspection, pharynx normal Neck: non-tender, full range of motion, supple, normal inspection Respiratory: chest non-tender, lungs clear, normal breath sounds, no respiratory distress, no accessory muscle use Cardiovascular: regular rate, rhythm, no edema, no murmur Gastrointestinal: normal bowel sounds, non tender, soft; No distended, No guarding, No rebound Neurologic/Psychiatric: no motor/sensory deficits, alert, normal mood/affect Skin: normal color, warm/dry Lymphatic: no adenopathy Progress/Results/Core Measures Suspected Sepsis SIRS Temperature: Pulse: Respiratory Rate: Laboratory Tests 06/25/21 12:40: White Blood Count 9.3 Blood Pressure / Mean: Laboratory Tests 06/25/21 12:40: Creatinine 0.64, Platelet Count 279, Total Bilirubin 0.5 Results/Orders Lab Results Laboratory Tests Test 06/25/21 12:40 Range/Units White Blood Count 9.3 4.3-11.0 10^3/uL Red Blood Count 4.49 3.80-5.11 10^6/uL Hemoglobin 13.0 11.5-16.0 g/dL Hematocrit 38 35-52 % Mean Corpuscular Volume 85 80-99 fL Mean Corpuscular Hemoglobin 29 25-34 pg Mean Corpuscular Hemoglobin Concent 34 32-36 g/dL Red Cell Distribution Width 12.5 10.0-14.5 % Platelet Count 279 130-400 10^3/uL Mean Platelet Volume 11.2 9.0-12.2 fL Immature Granulocyte % (Auto) 1 % Neutrophils (%) (Auto) 66 42-75 % Lymphocytes (%) (Auto) 23 12-44 % Monocytes (%) (Auto) 8 0-12 % Eosinophils (%) (Auto) 2 0-10 % Basophils (%) (Auto) 1 0-10 % Neutrophils # (Auto) 6.1 1.8-7.8 X 10^3 Lymphocytes # (Auto) 2.1 1.0-4.0 X 10^3 Monocytes # (Auto) 0.8 0.0-1.0 X 10^3 Eosinophils # (Auto) 0.2 0.0-0.3 10^3/uL Basophils # (Auto) 0.1 0.0-0.1 10^3/uL Immature Granulocyte # (Auto) 0.1 0.0-0.1 10^3/uL Sodium Level 141 135-145 MMOL/L Potassium Level 3.6 3.6-5.0 MMOL/L Chloride Level 103 98-107 MMOL/L Carbon Dioxide Level 28 21-32 MMOL/L Anion Gap 10 5-14 MMOL/L Blood Urea Nitrogen 9 7-18 MG/DL Creatinine 0.64 0.60-1.30 MG/DL Estimat Glomerular Filtration Rate 95 BUN/Creatinine Ratio 14 Glucose Level 116 H 70-105 MG/DL Calcium Level 8.9 8.5-10.1 MG/DL Corrected Calcium 9.2 8.5-10.1 MG/DL Total Bilirubin 0.5 0.1-1.0 MG/DL Aspartate Amino Transf (AST/SGOT) 17 5-34 U/L Alanine Aminotransferase (ALT/SGPT) 36 0-55 U/L Alkaline Phosphatase 83 40-136 U/L Total Protein 6.9 6.4-8.2 GM/DL Albumin 3.6 3.2-4.5 GM/DL My Orders Orders - CHELSIE WHATLEY MD Cbc With Automated Diff (06/25/21 13:16) Comprehensive Metabolic Panel (06/25/21 13:16) Chest 1 View Ap/Pa Only (06/25/21 13:16) Ed Iv/Invasive Line Start (06/25/21 13:16) Lactated Ringers (Lr 1000 Ml Iv Solution (06/25/21 13:30) Medications Given in ED Current Medications Medications Dose Ordered Sig/Herminio Route Start Time Stop Time Status Last Admin Dose Admin Lactated Ringer's 1,000 ml @ 0 mls/hr Q0M ONCE IV 06/25/21 13:30 06/25/21 13:31 DC 06/25/21 13:25 1,000 MLS/HR Vital Signs/I&O 06/25/21 06/25/21 13:39 14:02 Temp 36.6 36.6 Pulse 84 69 Resp 18 18 B/P (MAP) 154/89 (110) 129/55 Pulse Ox 98 98 O2 Delivery Room Air Room Air Capillary Refill : Progress Note : Progress Note 60-year-old female with above history coming in due to cough, nausea, vomiting, fever in the setting of being Covid positive. ABCs were intact and vitals were stable on presentation. Physical exam reassuring including clear lung sounds. Overall she is pretty well-appearing. Basic labs obtained and are reassuring. Chest x-ray with some signs of pneumonia which is fitting given she is getting over COVID infection. We will forego antibiotics at this time given she is completed 2 courses of antibiotics, and her chest x-ray would likely lag behind any treatment she has. She was given a bolus of IV fluids for her persistent vomiting and she does feel little bit better. I believe she is stable for discharge with outpatient follow-up. She was sent home with strict return precautions peer Departure Impression Primary Impression: COVID-19 Disposition: 01 HOME, SELF-CARE Condition: Stable Departure-Patient Inst. Decision time for Depature: 13:57 Referrals: LUISITO CORTES DO (PCP/Family) Primary Care Physician Patient Instructions: COVID-19 (DC) Add. Discharge Instructions: You likely are still having symptoms related to COVID and this can take some time to improve. Some people is taking several months, but hopefully this is not the case. Be sure to drink plenty of fluids, take Tylenol for fever or body aches. You can take Zofran for nausea. If you have any other concerns you can call your doctor or come back to the ER. Scripts Ondansetron HCl (Zofran) 4 Mg Tab 4 MG PO Q6H PRN for NAUSEA/VOMITING-1ST LINE for 5 Days, #20 TAB Prov: CHELSIE WHATLEY MD 06/25/21 CHELSIE WHATLEY MD Jun 25, 2021 13:13
[2021-06-25] MEDS ORDERED: LACTATED RINGERS 1,000 ML IV ONE (13:30)
--- NOTE | 2021-06-25 13:30 | Diagnostic Imaging Report ---
INDICATION: Covid pneumonia. Cough. Shortness of air. COMPARISON: None FINDINGS: Single frontal radiograph view of the chest was obtained and shows low inspiratory volumes with subtle scattered patchy opacities. There is no large effusion or pneumothorax. Cardiac silhouette and pulmonary vasculature are within normal limits. Osseous structures show no gross acute abnormalities. IMPRESSION: 1. Scattered patchy airspace opacities concerning for pneumonia. Follow-up is advised. Dictated by: Dictated on workstation # [id number]
[2021-06-25 13:31] LABS: HEMATOCRIT 38 % (35-52); MEAN CORPUSCULAR HEMOGLOBIN 29 pg (25-34); WHITE BLOOD COUNT 9.3 10^3/uL (4.3-11.0)
[2021-06-25 13:32] LABS: BASOPHILS # (AUTO) 0.1 10^3/uL (0.0-0.1); BASOPHILS % (AUTO) 1 % (0-10); EOSINOPHILS # (AUTO) 0.2 10^3/uL (0.0-0.3); EOSINOPHILS % (AUTO) 2 % (0-10); LYMPHOCYTES # (AUTO) 2.1 X 10^3 (1.0-4.0); LYMPHOCYTES % (AUTO) 23 % (12-44); MEAN CORPUSCULAR HGB CONC 34 g/dL (32-36); MEAN CORPUSCULAR VOLUME 85 fL (80-99); MEAN PLATELET VOLUME 11.2 fL (9.0-12.2); MONOCYTES # (AUTO) 0.8 X 10^3 (0.0-1.0); MONOCYTES % (AUTO) 8 % (0-12); NEUTROPHILS # (AUTO) 6.1 X 10^3 (1.8-7.8); NEUTROPHILS % (AUTO) 66 % (42-75); PLATELET COUNT 279 10^3/uL (130-400)
[2021-06-25 13:40] LABS: POTASSIUM 3.6 MMOL/L (3.6-5.0)
[2021-06-25 13:41] LABS: ALBUMIN 3.6 GM/DL (3.2-4.5); BILIRUBIN,TOTAL 0.5 MG/DL (0.1-1.0); CALCIUM 8.9 MG/DL (8.5-10.1); CREATININE SERUM 0.64 MG/DL (0.60-1.30); TOTAL PROTEIN 6.9 GM/DL (6.4-8.2)
[2021-06-25] MEDS ORDERED: ONDN4T PO (13:58)
[2021-06-25 14:02] VITALS: BP 129/55
== END 2021-06-25 14:25 | disposition home or self-care (01) ==
LOC: EDUNIT# 12:27 → ER FS 12:29
DX: U07.1 COVID-19 (principal); F41.9 Anxiety disorder, unspecified; Z73.0 Burn-out; Z79.899 Other long term (current) drug therapy
CPT/HCPCS: 36415; 71045; 80053; 85025

== ENCOUNTER 2022-01-07 11:50 | Emergency (ER) | payer BC ==
[~2022-01-07] VITALS: Ht 152.4 cm; Wt 79.8 kg
[~2022-01-07 11:50] MED LIST changes: +ONDN4T PO
--- NOTE | 2022-01-07 12:14 | ED Integumentary General ---
General Chief Complaint: Bite-Animal/Human/Insect Stated Complaint: BEE STING Source: patient Exam Limitations: no limitations History of Present Illness Date Seen by Provider: Jan 07, 2022 Time Seen by Provider: 12:05 Initial Comments Patient is a 61-year-old female who presents to the emergency department with a chief complaint of concern for bee sting to her right fifth finger. Patient states that occurred just prior to arrival. She is concerned about allergies to bee stings as both her daughters and her mother are allergic severely. She states about 5 minutes after she was stung she started getting some tingling in her face, around her mouth and her tongue. She states her voice feels a little hoarse. She denies chest pain, shortness of breath, nausea, vomiting. No palpitations. She states she has never been stung by a bee before. She was concerned that she needed to come to the emergency department for "shot". She did not take any medications after the bee sting. She states she is continuing to feel tingling at this time. She states the tip of her tongue feels "sore", not swollen. All other review of systems reviewed and negative except as stated. Timing/Duration: just prior to arrival Location: face Possible Cause: insect sting Associated Symptoms: paresthesia Allergies and Home Medications Allergies Coded Allergies: cephalexin (Verified Allergy, Unknown, Swelling, 12/19/19) famotidine (Verified Allergy, Unknown, Swelling, 12/19/19) levofloxacin (Verified Allergy, Unknown, Hives, 12/19/19) nalbuphine (Verified Allergy, Unknown, Shortness of Breath/Wheezing, 12/19/19) prochlorperazine (Verified Allergy, Unknown, Seizure, 12/19/19) promethazine (Verified Allergy, Unknown, Seizure, 12/19/19) trimethobenzamide (Verified Allergy, Unknown, Seizure, 12/19/19) Patient Home Medication List Home Medication List Reviewed: Yes Alprazolam (Xanax) 0.25 Mg Tablet, 0.25 MG PO Q8H PRN for ANXIETY Prescribed by: JUAREZ ROGERS on 01/18/171936 Baclofen (Baclofen) 5 Mg Tablet, 5 MG PO TID PRN for MUSCLE SPASMS Prescribed by: CANDE WEBB on 12/19/19 1343 Ibuprofen (Ibuprofen) 100 Mg/5 Ml Oral.susp, 400 MG PO Q6H PRN for pain/inflammation Prescribed by: CANDE WEBB on 12/19/19 1343 Ondansetron (Ondansetron Odt) 4 Mg Tab.rapdis, 4 MG PO TID Prescribed by: CHIKIS NUÑEZ on 11/09/20 0509 Ondansetron HCl (Zofran) 4 Mg Tab, 4 MG PO Q6H PRN for NAUSEA/VOMITING-1ST LINE Prescribed by: CHELSIE WHATLEY on 06/25/21 1358 Oxycodone HCl/Acetaminophen (Oxycodone-Acetaminophen 5-325) 1 Each Tablet, 1 EACH PO Q6H PRN for PAIN-SEVERE (8-10) Prescribed by: CANDE WEBB on 12/19/19 1401 Review of Systems Review of Systems Constitutional: see HPI EENTM: other (tingling in tongue and mouth) Respiratory: no symptoms reported Cardiovascular: no symptoms reported Gastrointestinal: no symptoms reported Genitourinary: no symptoms reported Musculoskeletal: no symptoms reported Skin: no symptoms reported Psychiatric/Neurological: Anxiety All Other Systems Reviewed Negative Unless Noted: Yes Past Qztxoqf-Obwfuw-Hhewoa Hx Patient Social History Tobacco Use?: No Substance use?: No Alcohol Use?: No Pt feels they are or have been: No Immunizations Up To Date First/Initial COVID19 Vaccinat: Not currently vaccinated Second COVID19 Vaccination [place]: Not currently vaccinated Third COVID19 Vaccination Date: Not currently vaccinated Seasonal Allergies Seasonal Allergies: No Past Medical History Surgery/Hospitalization HX: anxiety Surgeries: Yes Gallbladder, Hysterectomy, Oophorectomy, Tubal Ligation Respiratory: No Cardiac: No Neurological: No Genitourinary: No Gastrointestinal: No Musculoskeletal: No Endocrine: No HEENT: No Cancer: No Psychosocial: No Integumentary: No Physical Exam Vital Signs Vital Signs - First Documented 01/07/22 11:53 Temp 36.0 Pulse 93 Resp 16 B/P (MAP) 139/83 (101) Pulse Ox 98 O2 Delivery Room Air Capillary Refill : General Appearance: WD/WN, mild distress (anxious) HEENT: PERRL/EOMI, normal ENT inspection, pharynx normal, other (no intraoral swelling) Neck: full range of motion, supple, normal inspection Cardiovascular: regular rate, rhythm; No tachycardia Respiratory: lungs clear, normal breath sounds, no respiratory distress, no accessory muscle use Extremities: normal range of motion, normal inspection Neurologic/Psychiatric: alert, oriented x 3, other (anxious) Skin: normal color, other (no lesions or swelling or erythema to the right 5th finger) Progress/Results/Core Measures Results/Orders My Orders Orders - SHAILESH PRESTON MD Dexamethasone Injection (Decadron Injec (01/07/22 12:15) Medications Given in ED Current Medications Medications Dose Ordered Sig/Herminio Route Start Time Stop Time Status Last Admin Dose Admin Dexamethasone Sodium Phosphate 4 mg ONCE ONCE IM 01/07/22 12:15 01/07/22 12:16 DC 01/07/22 12:19 4 MG Vital Signs/I&O 01/07/22 01/07/22 11:53 12:43 Temp 36.0 36.0 Pulse 93 93 Resp 16 16 B/P (MAP) 139/83 (101) 141/86 Pulse Ox 98 98 O2 Delivery Room Air Room Air Progress Progress Note : Time: 12:12 Progress Note Patient is very anxious about her bee sting. I find no signs of anaphylaxis at this time. Her respirations are even and unlabored, no wheezing. No airway compromise, difficulty swallowing. Blood pressure is normal. We will go ahead and give her 4 mg of IM Decadron and monitor her for a little bit. We discussed return precautions. Benadryl/Pepcid at home as needed for further symptoms or return for difficulties breathing or swallowing. Patient verbalized understanding. All questions are sought and answered. Departure Impression Primary Impression: Bee sting Qualified Codes: T63.441A - Toxic effect of venom of bees, accidental (unintentional), initial encounter Disposition: 01 HOME, SELF-CARE Condition: Stable Departure-Patient Inst. Decision time for Depature: 12:13 Referrals: LUISITO CORTES DO (PCP) Primary Care Physician Patient Instructions: Insect Allergy Add. Discharge Instructions: Keep the area where you had to be staying clean and dry. Wash with soap and water and monitor for signs of infection. Benadryl and Pepcid for the next 24 hours as directed on the packaging if sy mptoms of itching persist or you note swelling at the bite site. If you develop any problems swallowing or breathing please return to the emergency department for reevaluation. Follow-up with your primary care provider as needed. SHAILESH PRESTON MD Jan 07, 2022 12:14
[2022-01-07 12:43] VITALS: BP 141/86
== END 2022-01-07 12:41 | disposition home or self-care (01) ==
LOC: EDUNIT# 11:50 → ER FS 11:51
DX: T63.441A Toxic effect of venom of bees, accidental (unintentional), initial encounter (principal); Z28.310 Unvaccinated for COVID-19
CPT/HCPCS: 99284